=== PATIENT | male | born 1960 | race Caucasian/White ===

== ENCOUNTER 2017-07-03 20:13 | Observation (INO) ==
[2017-07-03 20:55] LABS: Basophils # 0.1 K/mcL (0.0-0.2); Basophils % 0.6 %; Eosinophils # 0.2 K/mcL (0.0-0.6); Eosinophils % 2.6 %; Hematocrit 43.5 % (37.5-50.1); Hemoglobin 14.5 g/dL (12.9-16.9); Immature Granulocytes % 0.4 % (0-4); Lymphocytes # 1.2 K/mcL (0.6-4.6); Lymphocytes % 14.3 %; Mean Corpuscular HGB Conc 33.3 g/dL (31.6-35.5); Mean Corpuscular Hemoglobin 28.8 pg (28.0-33.3); Mean Corpuscular Volume 86.5 fL (83.0-100.0); Monocytes # 0.5 K/mcL (0.0-1.3); Neutrophils # 6.2 K/mcL (1.6-8.9); Platelet Count 250 K/mcL (140-400); Red Blood Count 5.03 M/mcL (4.19-5.50); Segmented Neutrophils % 76.1 %
[2017-07-03 21:04] LABS: BUN/Creatinine Ratio 18 (6-26); Blood Urea Nitrogen 14 mg/dL (8-26); Carbon Dioxide 26 mEq/L (19-29); Chloride 103 mEq/L (98-109); Potassium 4.1 mEq/L (3.5-4.5); Sodium 138 mEq/L (136-145); eGFR For African Americans > 60 (> 60); eGFR For Non-African Americans > 60 (> 60)
[2017-07-03 21:05] LABS: Glucose 95 mg/dL (70-99); Osmolality,Calculated 286 (280-300)
--- NOTE | 2017-07-03 21:18 | Emergency Department Note ---
Disposition Clinical Impression: Morbid obesity with BMI of 70 and over, adult Chest pain Qualifiers: Chest pain type: unspecified Qualified Code(s): R07.9 - Chest pain, unspecified Disposition: Admitted As Inpatient Condition: Good Referrals: Jose Pickett MD [Primary Care Provider] - Forms: ED Satisfaction Letter Time of Disposition: 21:51 Chest Pain HPI - General Chief Complaint: ED Chest Pain Stated Complaint: Chest pain Time Seen by Provider: 07/03/17 20:26 Source: patient Mode of arrival: ambulatory Limitations: no limitations Vital Signs Reviewed: Yes Nursing Notes Reviewed: Yes - History of Present Illness HPI Narrative: 57-year-old male morbidly obese history of hypertension, no smoking history presents with discernible chest pain. Describes a constant pressure in the midsternum that radiates between the scapula with intermittent sharp pain sensations that lasts a few seconds. Reports some diaphoresis, denies shortness of breath or nausea/vomiting. States initially started around 1700 yesterday. States nothing makes it better or worse. He attempted to take 2 baby aspirin today with no relief. Took his blood pressure medication prior to arrival at 1630. Denies any history of trauma or injury to the chest. Denies any recent falls. Denies any recent illness, fever, cough, abdominal pain. No history of stress tests are heart catheterization. He does have a primary care physician Dr. Pickett. Cardiac workup initiated. EKG does not show any acute ischemic changes. Severity scale (1-10): 5 - Related Data Home Medications Medication Instructions Recorded Confirmed Bupropion HCl [Wellbutrin Xl] 300 mg PO 01/22/17 01/22/17 Lisinopril [Zestril] 40 mg PO 01/22/17 hydroCHLOROthiazide 25 mg PO DAILY 01/22/17 01/22/17 [Hydrochlorothiazide] Previous Rx's Medication Instructions Recorded DiphenhydraMINE [Benadryl] 25 mg PO Q6HR PRN #20 capsule 01/22/17 Hydrocortisone 1% CREAM [Cortaid] 1 appl TP BID #28 gm 01/22/17 methylPREDNISolone [Medrol] 4 mg PO TAPER #21 tablet 01/22/17 Allergies Allergy/AdvReac Type Severity Reaction Status Date / Time No Known Allergies Allergy Verified 01/22/17 11:28 All systems ED: reviewed and negative except as stated. Review of Systems: As Per HPI Constitutional: Denies: fever, chills Cardiovascular: Reports: chest pain Respiratory: Denies: cough, dyspnea Gastrointestinal: Denies: abdominal pain, nausea, vomiting Genitourinary: Denies: urgency, dysuria Musculoskeletal: Denies: back pain, neck pain Integumentary: Denies: rash, abrasion Neurological: Denies: headache Chest Pain PMH - Past Medical History Medical history: Reports: hypertension Psychiatric history: Reports: no psych history - Social History Smoking Status: Never smoker Alcohol use: Reports: none Drug use: Reports: none Physical Exam - General Limitations: no limitations General appearance: alert, in no apparent distress, obese - Head Head exam: atraumatic, normocephalic, normal inspection - Eye Eye exam: Present: normal appearance, PERRL, EOMI - ENT ENT exam: normal exam, normal oropharynx, mucous membranes moist - Neck Neck exam: Present: normal inspection, full ROM, trachea midline - Chest Chest inspection: Present: normal inspection, symmetric chest wall rise. Absent : tenderness - Respiratory Respiratory exam: Present: normal lung sounds bilaterally. Absent: respiratory distress, wheezes - Cardiovascular Cardiovascular exam: Present: regular rate, normal rhythm, normal heart sounds, other (distant heart sounds) - Abdominal Exam Abdominal exam: Present: soft (obese), Non-Tender, normal bowel sounds. Absent : tenderness, distention, guarding, rebound, rigidity - Neurological Exam Neurological exam: Present: alert, oriented X3 - Skin Skin exam: Present: warm, dry, intact, normal color Course - Reevaluation(s) Reevaluation #1: Labs unremarkable. Troponin 0. HEART score 4. No acute ischemic changes on EKG. His BMI is reported 75.9. Will admit the patient for observation into rule out acute coronary syndrome. Patient is in agreement with this plan. Time: 21:52 - Consultations Consultation #1: Spoke with on-call hospitalist ty Ashraf to admit for chest pain r/o ACS. No further orders at this time Time: 22:34 Vital Signs Temperature 97.9 F 07/03/17 20:17 Pulse Rate 81 07/03/17 20:17 Respiratory Rate 16 07/03/17 20:17 Blood Pressure 180/88 07/03/17 20:17 O2 Sat by Pulse Oximetry 95 07/03/17 20:17 Temperature 97.9 F 07/03/17 20:17 Pulse Rate 83 07/03/17 22:00 Respiratory Rate 20 07/03/17 22:00 Blood Pressure 167/94 07/03/17 22:00 O2 Sat by Pulse Oximetry 93 07/03/17 22:00 Oxygen Delivery Oxygen Delivery Room Air Chest Pain - Medical Records Medical records reviewed: Yes I reviewed the patient's medical records. - Lab Data Lab results reviewed: Yes I reviewed the patient's lab results. Result diagrams: 07/03/17 20:45 07/03/17 20:45 Lab Results 07/03/17 07/03/17 07/03/17 Range/Units 20:45 20:45 20:45 WBC 8.1 (4.3-11.1) K/mcL RBC 5.03 (4.19-5.50) M/mcL Hgb 14.5 (12.9-16.9) g/dL Hct 43.5 (37.5-50.1) % MCV 86.5 (83.0-100.0) fL MCH 28.8 (28.0-33.3) pg MCHC 33.3 (31.6-35.5) g/dL RDW 13.0 (11.5-14.5) % Plt Count 250 (140-400) K/mcL MPV 10.0 (9.4-12.4) fL Immature Gran % 0.4 (0-4) % Seg Neutrophils % 76.1 % Lymphocytes % 14.3 % Monocytes % 6.0 % Eosinophils % 2.6 % Basophils % 0.6 % Neutrophils # 6.2 (1.6-8.9) K/mcL Lymphocytes # 1.2 (0.6-4.6) K/mcL Monocytes # 0.5 (0.0-1.3) K/mcL Eosinophils # 0.2 (0.0-0.6) K/mcL Basophils # 0.1 (0.0-0.2) K/mcL Sodium 138 (136-145) mEq/L Potassium 4.1 (3.5-4.5) mEq/L Chloride 103 (98-109) mEq/L Carbon Dioxide 26 (19-29) mEq/L BUN 14 (8-26) mg/dL Creatinine 0.78 (0.72-1.25) mg/dL Est GFR ( Amer) > 60 (> 60) Est GFR (Non-Af Amer) > 60 (> 60) BUN/Creatinine Ratio 18 (6-26) Glucose 95 (70-99) mg/dL Calculated Osmolality 286 (280-300) Calcium 10.0 (8.6-10.8) mg/dL Troponin I 0.00 (0-0.03) ng/mL - Radiology Data Radiology results reviewed: Yes I reviewed the patient's radiology results. Chest X-Ray 07/03/17 20:27 IMPRESSION: No acute abnormality detected. D/ / Ignacio Stoll MD / Ignacio Stoll MD Interpreting Provider: Ignacio Stoll MD - EKG Data EKG attestation: Yes I reviewed and interpreted this EKG. EKG results narrative: EKG performed 2021 normal sinus rhythm 77 bpm, left axis deviation, poor R-R wave progression, no ST elevations or depressions, no T wave inversion, intervals are within normal limits. Compared to old EKG 10/16/2014 shows consistent findings. No acute ischemic changes. Heart Score - Score History: Moderately Suspicious EKG: Non Specific repolarisation Disturbance Age: 45-65 Risk Factors: 1-2 risk factors Troponin: Less than normal limit HEART Score Total: 4 Attestation Statement - Attestation Attestation: IRashad MD, personally evaluated this patient and discussed their management with the resident physician. I reviewed the resident's note and agree with the documented findings, medical decision making, and plan of care. 57-year-old male presents to the emergency department with a complaint of intermittent substernal chest pain over the last 24 hours. He describes the pain as a heaviness or pressure in the mid substernal region which radiates straight through to the back between his shoulder blades. It is also been some radiation to the left axilla. Some mild shortness of breath with the pain. Also some intermittent diaphoresis. No nausea or vomiting. There is been no cough or fever. No palpitations. No prior history of any cardiac problems with patient is morbidly obese and also has a history of hypertension. No diabetes. No family history of heart problems. Patient is a nonsmoker. On examination patient is a well-developed morbidly obese male in no acute distress. He is alert and oriented 3. There is no cyanosis or diaphoresis. Neck is supple and nontender. Chest is nontender to palpation. Breath sounds are clear and equal bilaterally. Heart regular rate and rhythm. Abdomen soft and nontender with normal bowel sounds. EKG shows a sinus rhythm with heart rate of 77, left axis deviation, LVH, no acute ischemic changes. Chest x-ray negative. Labs reviewed and unremarkable. Troponin negative. The hospitalist, Dr. Francisco, was consulted and accepted admission of the patient.
[2017-07-03] MEDS ORDERED: Aspirin 325 MG TABLET PO ONE (23:54)
--- NOTE | 2017-07-03 23:57 | Internal Med History&Physical ---
Date of Encounter: 07/03/17 Time of Encounter: 23:55 Assessment and Plan (1) Chest pain Current visit: Yes Status: Acute Chest pain with a typical features. Trend troponin. I will also check the D- dimer and if elevated will rule out pulmonary embolism Qualifiers: Chest pain type: unspecified Qualified Code(s): R07.9 - Chest pain, unspecified (2) Morbid obesity with BMI of 70 and over, adult Current visit: Yes Status: Acute Internal Medicine - H&P: HPI Chief complaint: chest pain History of present illness: Mr. Carcamo is a 57 year old male patient was morbidly obese with the body mass index of 75 kg/m presents to the emergency room today with the main complaint of chest pain. For the past couple days patient has been having retrosternal and left inflammatory chest pain radiating to his back no relation with exertion and pain lasts for approximately 20 to 30 seconds. No associated shortness of breath nausea vomiting. No prior cardiac workup. No coughing expectoration. 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 No prior history of DVT or pulmonary embolism. Past Med Surg Social Fam HX - Past Medical History Medical history: hypertension Psychiatric history: no psych history - Social History Smoking Status: Never smoker Smokeless Tobacco Status: No Alcohol use: none Drug use: none Internal Medicine - H&P: Meds Bupropion HCl [Wellbutrin Xl] 300 mg PO 01/22/17 [History] DiphenhydraMINE [Benadryl] 25 mg PO Q6HR PRN #20 capsule 01/22/17 [Rx] Hydrocortisone 1% CREAM [Cortaid] 1 appl TP BID #28 gm 01/22/17 [Rx] Lisinopril [Zestril] 40 mg PO 01/22/17 [History] hydroCHLOROthiazide [Hydrochlorothiazide] 25 mg PO DAILY 01/22/17 [History] methylPREDNISolone [Medrol] 4 mg PO TAPER #21 tablet 01/22/17 [Rx] Allergies No Known Allergies Allergy (Verified 01/22/17 11:28) All Systems PM: A 10-system review of systems was performed and is negative for pertinent findings except as documented above in the HPI. Review of systems: 10 point review of symptoms negative except for HPI - Constitutional Vitals: Temp Pulse Resp BP Pulse Ox 98.2 F 91 18 152/78 95 07/03/17 23:32 07/03/17 23:32 07/03/17 23:32 07/03/17 23:32 07/03/17 23:32 Exam: Gen.: patient is alert oriented times 3 cardiac: normal S1 S2 no additional sounds or murmurs chest: no active wheezing or bronchial breathing abdomen soft nontender nondistended normal bowel sounds lower extremity no swelling. Neuro: no new focal deficits Internal Med - H&P Results - Labs CBC & Chem 7: 07/03/17 20:45 07/03/17 20:45
[2017-07-04] MEDS ORDERED: Aspirin 325 MG TABLET PO ONE (00:39)
[2017-07-04] MEDS: Nitroglycerin 0.4 MG TAB.SUBL SL PRN ×2 (00:58→04:22)
[2017-07-04] MEDS ORDERED: Aspirin 325 MG TABLET PO SCH (09:00)
[2017-07-04] MEDS ORDERED: Perflutren Lipid Microsphere 1.3 ML in 0.9 % Sodium Chloride 8.7 ML IVP ONE (10:16)
--- NOTE | 2017-07-04 11:02 | Cardiology Consult Note ---
<Dileep Hollins - Last Filed: 07/04/17 13:48> Date of Encounter: 07/04/17 Time of Encounter: 10:57 Assessment and Plan (1) Chest pain not due to acute coronary syndrome Current Visit: Yes Status: Acute Echocardiogram was done which was very hard to discern due to patients obesity and not all LV views were attainable. The estimated LVEF was 45% which would be expected due to patients obesity and there were no other signs of dysfunction that could be seen due to poor quality of the exam to lead us towards ACS causing his chest pain. A nuclear stress test was ordered but could not be done to to patients weight being over our limits. After evaluating patient and seeing that his labs, including troponin X2 being negative. And his ekg not showing any acute changes we don't think this chest pain is cardiac in nature. There is no other cardiac testing we can offer her as he is over the weight limit for heart catheterization as well. Pt did mention he has been stressed which easily could be the source of his chest pain. Also this could be gastric in nature in it could be esophageal spasm. We would recommend he be started on a PPI for possible gastric reflux as a cause and for prophylaxis recommend a baby aspirin daily. Also recommend he follow up with his pcp about this chest pain in case further work up is needed. Cardiology is signing off this patient. Discussion w patient/family: The assessment and plan as outlined above was discussed with the patient and/or family members who expressed understanding and agreement. All questions were answered. Thank you for involving us in the care of your patient. Please call with any questions. History of Present Illness Consult date: 07/04/17 Requesting physician: Zhao Garcia Consult reason: Chest Pain Chief complaint: Chest Pauin History of present illness: Mr. Carcamo is a 57 year old male with pmh of morbid obesity and htn presented to the ED with Chest pain that began 1 day prior. The pain was sub sternal that radiated to the back between the shoulder blades. He stated that nothing helped and he did take 2 81mg ASA at onset of pain with no relief. He noted mild shortness of breath, and diaphoresis but denies any nausea/vomiting. He states nothing makes the pain better. In the ED all labs came back normal as well as CXR being normal. EKG was done in the ED shoing only left axis deviation but no signs of ischemia and it was compared to an old one done which also showed no acute changes and there were no noticable differences between the two. Today he is not complaining of chest pain but is stating that he had chest pain through the night that woke him up. The nitro and ASA he took upon admission he believes could have helped with the pain. He is not having any other complaints at this time. He has no cardiac medical history and has never seen a mica miner. He also has no family history of ACS, except his mother had CHF but it was well controlled. He is still having no shortness of breath or diaphoresis. An echo and stress test was ordered. His only risk factors are hypertension. Past Med Surg Social Fam HX - Past Medical History Medical history: hypertension Psychiatric history: no psych history - Past Surgical History Surgical History: colectomy - Social History Smoking Status: Never smoker Smokeless Tobacco Status: No Alcohol use: none Drug use: none - Family History Mother Living Status: Age at : 66 Cause of : CHF Hx Family Cardiac Disorders: Yes Hx Family Respiratory Disorders: Yes (Emphysema) Hx Family Cancer: No Hx Family GI Disorders: No Medications and Allergies Bupropion HCl [Wellbutrin Xl] 300 mg PO DAILY 01/22/17 [History] Lisinopril [Zestril] 40 mg PO DAILY 01/22/17 [History] hydroCHLOROthiazide [Hydrochlorothiazide] 25 mg PO DAILY 01/22/17 [History] Aspirin 325 mg PO DAILY tab 07/04/17 [Rx] Cholecalciferol (D-3) [Vitamin D] 5,000 unit PO DAILY 07/04/17 [History] Fluticasone Propionate Nasal [Flonase] 1 spray NS DAILY 07/04/17 [History] Metoprolol XL (24 HR) Succ [Toprol Xl] 25 mg PO DAILY #30 tab.er.24h 07/04/17 [ Rx] Nitroglycerin 0.4 mg SL Q5MIN PRN #40 tab 07/04/17 [Rx] Omeprazole Magnesium [Prilosec Otc] 20 mg PO BID #60 tablet. 07/04/17 [Rx] Allergies No Known Allergies Allergy (Verified 01/22/17 11:28) All Systems Review: A 10-system review of systems was performed and is negative for pertinent findings except as documented above in the HPI. - Constitutional Constitutional: no anorexia, no chills, no daytime sleepiness, no fatigue, no fever(s), no frequent falls, no headache(s), no malaise, no night sweats, no snoring, no stops breathing during sleep, no weakness, no weight gain, no weight loss - EENT Eyes: no blurred vision, no loss of vision, no pain Nose, mouth and throat: no bleeding gums, no dysphagia, no epistaxis, no mouth pain, no odynophagia, no sinus pain, no sore throat - Cardiovascular Cardiovascular: leg edema (Chronic), no chest pain at rest, no chest pain with exertion, no claudication, no diaphoresis, no dyspnea at rest, no dyspnea on exertion, no irregular heart rhythm, no radiating jaw, neck or arm pain, no lightheadedness, no orthopnea, no palpitations, no paroxysmal nocturnal dyspnea , no rapid heart rate, no slow heart rate, no syncope - Respiratory Respiratory: no cough, no dyspnea, no hemoptysis, no wheezing - Gastrointestinal Gastrointestinal: no abdominal pain, no coffee ground emesis, no constipation, no diarrhea, no dysphagia, no hematemesis, no hematochezia, no nausea - Genitourinary Genitourinary: no dysuria, no hematuria - Musculoskeletal Musculoskeletal: no abnormal gait, no arthralgias, no back pain, no muscle cramps, no muscle weakness - Integumentary Integumentary: no erythema, no rash - Neurological Neurological: no abnormal speech, no dizziness, no focal weakness, no loss of vision, no memory loss, no numbness, no syncope - Psychiatric Psychiatric: anxiety (He states he has a lot going on at work.), no depression - Hematological/Lymphatic Hematologic/Lymphatic: no easy bleeding, no easy bruising Physical Examination Vital Signs, Last 4 Hours Temp Pulse Resp BP Pulse Ox 07/04/17 07:59 97.9 F 80 16 145/59 96 General: Conversant, No Apparent Distress HEENT: Atraumatic, Normocephaly, Mucus Membranes Moist Neck: No JVD, Normal carotid pulses Cardiac: Reg Rate and Rhythm, Normal S1 and S2 Lungs: Normal Breath Sounds, No Wheeze, Rales, Rhonchi Neuro: Alert and responsive, No focal deficits noted Abdomen: Soft, Non-Tender Skin: No rashes noted on visualized skin Musculoskeletal: No Chest Wall Tenderness Extremities: No Clubbing, No Cyanosis, Normal Pulses, Other (Bilateral 1+ pitting edma that is chronic) Results 07/03/17 20:45 07/03/17 20:45 Lab Results 07/04/17 07/04/17 07/04/17 00:49 03:11 09:15 D-Dimer 277 Troponin I 0.00 0.00 - Imaging and Cardiology Chest Xray: report reviewed, image reviewed Echo: report reviewed - EKG Interpretation EKG results cardiology: personally reviewed, normal ECG, sinus rhythm, no diagnostic ischemia Consult Discharge Plan - Plan Referrals: Jose Pickett MD [Primary Care Provider] - 07/12/17 11:30 am Prescriptions: Nitroglycerin 0.4 mg SL Q5MIN PRN #40 tab PRN Reason: Chest Pain Metoprolol XL (24 HR) Succ [Toprol Xl] 25 mg PO DAILY #30 tab.er.24h Omeprazole Magnesium [Prilosec Otc] 20 mg PO BID #60 tablet. <Billie Ibrahim - Last Filed: 07/04/17 14:59> Date of Encounter: 07/04/17 Assessment and Plan Discussion w patient/family: The assessment and plan as outlined above was discussed with the patient and/or family members who expressed understanding and agreement. All questions were answered. Thank you for involving us in the care of your patient. Please call with any questions. History of Present Illness History of present illness: Mr. Carcamo is a 57 year old male All Systems Review: A 10-system review of systems was performed and is negative for pertinent findings except as documented above in the HPI. Physical Examination Vital Signs, Last 4 Hours Temp Pulse Resp BP Pulse Ox 07/04/17 11:59 97.9 F 79 16 164/97 97 Results 07/03/17 20:45 07/03/17 20:45 Lab Results 07/04/17 07/04/17 07/04/17 00:49 03:11 09:15 D-Dimer 277 Troponin I 0.00 0.00 - Attending Attestation I examined this patient and my medical decision-making was reviewed with the Resident Physician. I agree with the documented findings, disposition and treatment plan as described except to the extent set forth below. Mr. Carcamo is a very pleasant 57 year old male presenting with atypical chest pain which does not represent ACS. Troponins are negative. There are no ischemic ECG findings. His lipids are abnormal and he is not a diabetic. He is also a lifetime nonsmoker. However, risk factors include morbid obesity and male gender. ECG demonstrated q waves laterally possibly suggesting an old lateral IN. I personally reviewed the echo images which were technically suboptimal. In my opinion, LV systolic function is low normal. Echo report documents EF 45%. Therefore I recommend starting low dose aspirin and low dose Toprol. He should also have a trial of PPI. Recommend outpatient follow up. Of note, we also discussed consideration of an evaluation for gastric bypass. The patient is contemplative. He would like to discuss further at follow up cardiology visit. Will sign off. Please call with questions.
[2017-07-04 12:02] VITALS: BP 164/97
--- NOTE | 2017-07-04 13:34 | Discharge Summary ---
Date of Encounter: 07/04/17 Time of Encounter: 13:31 - Discharge Diagnosis (1) GERD (gastroesophageal reflux disease) Priority: Secondary Status: Acute Qualifiers: Qualified Code(s): K21.9 - Gastro-esophageal reflux disease without esophagitis (2) Chest pain Priority: Primary Status: Acute Qualifiers: Chest pain type: unspecified Qualified Code(s): R07.9 - Chest pain, unspecified (3) Morbid obesity with BMI of 70 and over, adult Priority: Secondary Status: Acute - Discharge Medications Prescriptions: Nitroglycerin 0.4 mg SL Q5MIN PRN #40 tab PRN Reason: Chest Pain Metoprolol XL (24 HR) Succ [Toprol Xl] 25 mg PO DAILY #30 tab.er.24h Omeprazole Magnesium [Prilosec Otc] 20 mg PO BID #60 tablet. Home Medications: Bupropion HCl [Wellbutrin Xl] 300 mg PO DAILY 01/22/17 [History] Lisinopril [Zestril] 40 mg PO DAILY 01/22/17 [History] hydroCHLOROthiazide [Hydrochlorothiazide] 25 mg PO DAILY 01/22/17 [History] Aspirin 325 mg PO DAILY tab 07/04/17 [Rx] Cholecalciferol (D-3) [Vitamin D] 5,000 unit PO DAILY 07/04/17 [History] Fluticasone Propionate Nasal [Flonase] 1 spray NS DAILY 07/04/17 [History] Metoprolol XL (24 HR) Succ [Toprol Xl] 25 mg PO DAILY #30 tab.er.24h 07/04/17 [ Rx] Nitroglycerin 0.4 mg SL Q5MIN PRN #40 tab 07/04/17 [Rx] Omeprazole Magnesium [Prilosec Otc] 20 mg PO BID #60 tablet. 07/04/17 [Rx] Allergies/Adverse Reactions: Allergies No Known Allergies Allergy (Verified 01/22/17 11:28) Procedures/tests Complete & Pending: Procedures Performed prior 72 hours Category Date Time Status NM jose luis perf SPECT multi [NM] Routine Exams 07/04/17 09:46 Ordered EV echocardiogram w enhance Routine Y 07/04/17 23:51 Completed Date of admission: 07/03/17 22:43 Primary care physician: Jose Pickett MD Consults: 08/07/17 10:11 Consult to Cardiology [CONS] Routine Comment: Consulting Provider: Anand Fenton Reason for Consult: chest pain Time Notified: 10:11 Call Completed: No Discharging clinician: Zhao Garcia Anticipated date of discharge: 07/04/17 - Patient Status Disposition: Home, Self-Care Condition: Good Overall status at discharge: patient is back to baseline - Discharge Instructions Follow Up With: Jose Pickett MD [Primary Care Provider] - 07/12/17 11:30 am - Diet and Activity Activity: increase activity as tolerated, resume usual activities as tolerated Diet: advance to your usual diet Hospital course: Mr. Carcamo is a 57 year old male. Past medical history significant for hypertension and morbid obesity admitted for nonspecific atypical chest pain which would last only for a few seconds. He was admitted on telemetry and ruled out for WI with the help of negative cardiac enzymes and EKG. Cardiology was consulted. Echocardiogram was done which showed normal EF with normal LV and right ventricle functions and no significant valvular abnormality. I discussed the case in person with a&p mechanic who has seen him. She feels that the EF is other on borderline in the range of 45% and considering some nonspecific ST changes she would rather like to see him in office and try to arrange an outpatient stress test. Patient certainly is not having any acute coronary event and therefore can be worked up as outpatient with cardiology will find a place where they can accommodate patient for further cardiac testing. Patient is planned to be discharged home. Cardiology is not convinced that chest pain is cardiac. They recommended to try PPI. - Time Spent with Patient Total time spent providing and/or coordinating discharge services: Greater than 30 minutes - Constitutional Vitals: Temp Pulse Resp BP Pulse Ox 97.9 F 79 16 164/97 97 07/04/17 11:59 07/04/17 11:59 07/04/17 11:59 07/04/17 11:59 07/04/17 11:59 - Head Head exam: Present: atraumatic, normocephalic - Eye Eye exam: Present: PERRL, conjuntiva pink, sclera anicteric Pupils: Present: PERRL - Neck Neck exam general surgery: Present: supple, trachea midline. Absent: lymphadenopathy - Respiratory Respiratory exam: Present: CTAB. Absent: accessory muscle use, rales, rhonchi, wheezes - Cardiovascular Cardiovascular exam: Present: RRR, +S1, +S2. Absent: diastolic murmur, gallop, rubs, systolic murmur - GI/Abdominal GI/Abdominal exam: Present: normal bowel sounds, soft, no peritoneal signs. Absent: distended, tenderness - Extremities Exam Extremities exam: Present: warm, radial pulses palpable and symetrical. Absent : calf tenderness, cyanotic, pedal edema - Neurological Exam Neurological exam: Present: CN II-XII intact, oriented X3, no focal deficits. Absent: pronater drift, facial droop, speech deficit - Skin Skin exam: Present: dry, intact
[2017-07-04] MEDS ORDERED: Metoprolol XL (24 HR) Succ 25 MG TAB.ER.24H PO SCH (15:00)
--- NOTE | 2017-07-04 20:44 | Electrocardiograph Report ---
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
[2017-07-07 07:54] LABS: CK-MB (CK isoenzymes) 0 % (0-4); CK-MM (CK-isoenzymes) 100 % (96-100)
[2017-07-07 07:54] LABS: CK-MB (CK isoenzymes) 0 % (0-4); CK-MM (CK-isoenzymes) 100 % (96-100)
[2017-07-07 13:16] LABS: CK Total (Ck Isoenzymes) 46 U/L (20-200); CK-BB (CK isoenzymes) 0 % (0-0)
[2017-07-07 13:18] LABS: CK Total (Ck Isoenzymes) 44 U/L (20-200); CK-BB (CK isoenzymes) 0 % (0-0)
== END 2017-07-04 16:15 | disposition home or self-care (01) ==
LOC: EMEROO 20:13 → 2NENU 20:13
PROVIDERS: ADMIT Hospitalist; ATTEND Internal Medicine